=== PATIENT | male | born 1975 | race Caucasian/White ===

== ENCOUNTER 2022-04-05 09:52 | Outpatient (RCR) | payer OTHER, SELFPAY ==
--- NOTE | 2022-04-06 08:52 | PC.NURSE ---
I called Brett this morning to let him know that his insurance is inactive. 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 He stated he thought his insurance was reinstated however he stated he went to [facility] pick[facility] his sons medication and was told it would be $700.00. He plans on working on this issue today. He does not want to come to [facility] at this time as he does not want to pay out of pocket. I gave Brett information about [facility] Financial Assistance Program which could help him access [facility] insurance if needed. Brett is interested in this and Gilma emailed him the information. Brett stated he will call us when he has insurance as he is still interested in coming to the program. I asked him if he was safe or having any suicidal ideation. He denied SI and stated he was safe. Stated he needed to work on the insurance issue and thanked me for my help. He also stated he may needed to go back to work earlier d/t financial issues d/t being out of work. I also emailed Brett and let him know that I was emailing him a copy of his safety plan if needed which includes the crisis number.
== END 2022-04-05 23:59 | disposition home or self-care (01) ==
LOC: HO.PHPA 09:52
PROVIDERS: Visit Provider Psychiatry & Neurology Psychiatry
DX: F31.81 Bipolar II disorder (principal)

== ENCOUNTER 2022-04-22 13:28 | Outpatient (REF) | payer OTHER, SELFPAY ==
[2022-04-22 14:24] LABS: Alanine Aminotransferase 11 U/L (0-40); Albumin Level 4.7 g/dL (3.5-5.0); Alkaline Phosphatase 104 U/L (39-117); Anion Gap 10 (12-20); Aspartate Amino Transferase 21 U/L (5-37); Bilirubin Total 0.5 mg/dL (0.0-1.0); Blood Urea Nitrogen 19 mg/dL (9-16); Carbon Dioxide 32 mmol/L (22-29); Chloride 102 mmol/L (96-108); Estimated Glomerular Filt Rate > 60; Glucose Random 128 mg/dL (60-115); Potassium 4.3 mmol/L (3.3-5.1); Sodium 140 mmol/L (135-145); Total Protein 7.5 g/dL (6.5-8.0)
[2022-04-22 14:56] LABS: Free T4 (Free Thyroxine) 0.77 ng/dL (0.71-1.85); Thyroid Stimulating Hormone 0.53 uIU/mL (0.32-4.0)
== END 2022-04-22 13:29 | disposition home or self-care (01) ==
LOC: HO.LAB 13:28
PROVIDERS: Visit Provider Nurse Practitioner Psychiatric/Mental Health
DX: F31.81 Bipolar II disorder (principal)
CPT/HCPCS: 36415; 80053; 84439; 84443

== ENCOUNTER 2022-05-13 09:30 | Outpatient (RCR) | payer OTHER, SELFPAY ==
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
[2022-04-22 12:28] VITALS: BP 124/68; PULSE 80; RESP 14; TEMP 36.9
[2022-04-22 14:08] LABS: Amphetamine Screen Urine Not Detected (Not Detect); Barbiturates, Urine Not Detected (Not Detect); Benzodiazepines Screen Urine Not Detected (Not Detect); Cannabinoid Screen Urine Not Detected (Not Detect); Cocaine Screen Urine Not Detected (Not Detect); Fentanyl, urine Not Detected (Not Detect); Opiate Screen Urine Not Detected (Not Detect); Phencyclidine Screen Urine Not Detected (Not Detect)
[2022-04-22 15:31] VITALS: BMI 24.4
--- NOTE | 2022-04-22 15:57 | PC.ADMIT ---
Patient admitted to [facility] 04/22/2022 with following diagnosis: Bipolar II disorder chronic, major depressive, PTSD, ADHD, Alcohol use disorder. Patient was referred by [facility]. Patient admitted to [facility] on 08/02/2021 after failed suicide attempt by taking 20 Seroquel tablets followed my a glass of wine. Patient was initially admitted to [facility] medical floor with transfer to [facility] when medically stable. Patient reports anxiety, depression. low self esteem with Passive SI no plan or intent. Patient reports financial concerns and relational issues resulting in feelings of hopelessness and helplessness. 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 Patient has a long history of inpatient admissions related to SI, anxiety and depression. Patient met with [facility] who started patients back on his medication regimen. Will consider other med options after she gets lab results. Patient has a history of alcohol abuse. Patient was in recovery for 10 years until 11/2021. Patient has not had a drink since 02/25/2022. Patient attends AA meetings. Safety Plan given to patient. Medication reconciliation done with pharmacy and patient. Reviewed medication use, route, use, frequency and side effects. Patient states good understanding of medications. Full nursing assessment completed and charted.
--- NOTE | 2022-04-26 10:07 | PC.ADMIT ---
Patient admit to [facility] on 04/22/2022 with following diagnosis: Bipolar II disorder, chronic, major depressive, PTSD, ADHD, Alcohol use disorder. Patient is 46 years old, referred to [facility] by [facility] secondary to suicide attemp. Patient presented in [facility] ER on 02/25/22 after taking 22 Seroquel pills with a glass of wine. Patient was initially admitted to a medical floor and on 02/28/22 after medically cleared he was transferred to [facility]. Patient presents today during nursing assessment with severe anxiety and reports feelings of helplessness and hopelessness, poor sleep, low energy, low self esteem. Patient denies SI today, with no plan or intent. Copy of Safety tool given to patient who states he would reach out to crisis if feeling suicidal. Patient has a long history IPLOC with previous suicide attempts. Patient has a history of alcohol abuse, has been in recovery for 10 years until November 2021. He reports last time he drank was 02/25/2022. Patient reports he is attending AA meetings. Patient was seen by [facility] today for medication management. All medications reconciled with patient and pharmacy. Patient reported he was out of some medications. All scripts needed were provided to patient by [facility]. Medication teaching done including use, frequency, dose, side effects. Patient states good understanding. Patient has labs ordered, he will get labs drawn today. Nursing admission completed and charted.
--- NOTE | 2022-04-26 16:48 | P.PNPSP_ITS ---
Subjective Subjective Date of Service: 04/26/22 Reason For Visit: bipolar II,PTSD,ADHD,depression Medical Problems Affecting Mental Status: No Interim History: Reports feeling slightly better, although still anxious, with mood lability. Tearful at times during encounter. Relapsed with alcohol over the weekend. Continues with passive SI, no intent or plan. Poor sleep. Medication Compliance: Yes Side effects from medications: No Attending Groups: Yes Review of Systems Acute medical concerns: No Medical Review of Systems: unchanged Review of Systems Review of Systems Yes all other systems are reviewed and are negative Constitutional: Reports no additional constitutional complaints Mental Status Exam Mental Status Exam Narrative: NAD. Tearful, some mood lability Patient Appearance: Appropriate Patient Orientation: Person, Place, Time and Situation Level of Consciousness: Awake, Appropriate and Alert Patient Behavior: Appropriate, Cooperative and Anxious Mood Description: Depressed and Anxious Affect Description: Depressed, Anxious and Labile Patient Cognition Impaired: No Ability to Follow Directions: Good Speech Pattern: Clear, Spontaneous Speech and Excessive Memory Description: Intact Hallucinations: None Delusions: Not Present Perceptual Disturbances: Depersonalization Thought Content: positive for Suicidal Ideation (passive) Depressive Symptoms: Increased Anxiety, Diff. Making Decisions, Difficulty Sleeping, Loss of Int. in Activity, Hopelessness, Feelings of Guilt, Thoughts of /Suicide and Difficulty Concentrating Judgement: Fair Diagnostics Vital Signs (24Hr): BMI result Body Mass Index 24.4 Assessment & Plan Assessment & Plan (1) Bipolar 2 disorder: Status: Acute Code(s): F31.81 - Bipolar II disorder Assessment and Plan: Reports feeling slightly better, although still anxious, with mood lability. We discussed medications at length. For some time he was taking quetiapine 200 mg at bedtime. He had dropped down to 100 mg, and now currently has only been taking 25 mg b.i.d. p.r.n.. Education was provided regarding mood stabilization properties, as well as effectiveness with anxiety and sleep. He was agreeable to start taking 50 mg scheduled at bedtime in addition to the 25 mg b.i.d.. Reviewed current lab work. Discussed increasing oxcarbazepine in order to help further with mood st abilization. He was agreeable. Tearful at times during encounter. Feels overwhelmed. Has financial concerns, marital problems at home. Relapsed with alcohol over the weekend. Experiencing guilt regarding this. Encouraged to reach out to support network. We discussed naltrexone. He has taken this in the past, with some positive effect. He is willing to restart. Continues with passive SI, no intent or plan. Feels safe. Poor sleep. (2) Alcohol dependence, uncomplicated: Status: Acute Code(s): F10.20 - Alcohol dependence, uncomplicated (3) Chronic post-traumatic stress disorder (PTSD): Status: Acute Code(s): F43.12 - Post-traumatic stress disorder, chronic (4) ADHD: Status: Acute Code(s): F90.9 - Attention-deficit hyperactivity disorder, unspecified type Assessment and Plan: Attention and concentration somewhat improved now that he has resumed dextroamphetamine-amphetamine. Asking for higher dose. Discussed waiting at this time, as there are several other medication changes. Was agreeable to this. Plan 1. Continue with current [facility] plan of care. 2. Start quetiapine 50 mg scheduled at bedtime. 3. Increase oxcarbazepine to 600 mg b.i.d.. 4. Start naltrexone 50 mg daily. 5. Harm reduction discussion. 6. Follow-up as per protocol. Patient educated on: diagnosis, medication risk/benefits, substance abuse and therapeutic strategies Informed Consent: understands Reason for contiued partial hosp. stay Substantial Risk for: harm to self, inability to function and rapid decompensation Certification I certify that partial hospital treatment is medically necessary due to the symptoms and problems resulting from the patient's mental illness and the failure to treat the patient at the partial hospital level of care would likely result in the patient requiring inpatient psychiatric care which could not be prevented at a less intensive level of care. Total time managing care of this patient today __30__ minutes. Discharge Plan Discharge Attending provider: Braden Rudd Medications: New dextroamphetamine-amphetamine 20 mg capsule,extended release 24hr 20 mg PO DAILY Qty: 30 0RF Rx Instructions: Partial Fill upon patient request. trazodone 50 mg tablet 50 mg PO BEDTIME PRN (Reason: sleep) Qty: 30 0RF oxcarbazepine 600 mg tablet 600 mg PO BID Qty: 60 0RF quetiapine 50 mg tablet 50 mg PO BEDTIME Qty: 14 0RF naltrexone 50 mg tablet 50 mg PO DAILY Qty: 30 0RF Discontinued dextroamphetamine-amphetamine 20 mg tablet 1 tab PO BID oxcarbazepine 300 mg tablet 300 mg PO 1XD Rx Instructions: Half of 600 mg tab oxcarbazepine 600 mg tablet 600 mg PO BEDTIME No Action fluoxetine 20 mg capsule 20 mg PO DAILY albuterol sulfate 90 mcg/actuation HFA aerosol inhaler 2 puff INHALATION Q4H PRN (Reason: Shortness Of Breath) quetiapine [Seroquel] 25 mg Tablet 25 mg PO 2XD PRN (Reason: Anxiety)
--- NOTE | 2022-04-28 15:40 | HO.PHPIOP ---
Case opened in treatment team
--- NOTE | 2022-05-05 10:25 | HO.PHPPROGNO ---
Subjective Subjective Date of Service: 05/05/22 Reason For Visit: bipolar II,PTSD,ADHD,depression Medical Problems Affecting Mental Status: No Interim History: Describes mood as depressed, anxious. Has been taking increased oxcarbazapine, Seroquel, added naltrexone, with no complaints. Some mild GI upset at 1st with naltrexone, resolving. A drink over past week 3 times, states with less amounts. No SI, no safety concerns. Remembers why he stopped taking Depakote in the past, reports that made him feel sluggish and absent minded. Not currently prescribed this Medication Compliance: Yes Side effects from medications: Yes (mild) Attending Groups: Yes Review of Systems Acute medical concerns: No Medical Review of Systems: unchanged Review of Systems Review of Systems Yes all other systems are reviewed and are negative Constitutional: Reports no additional constitutional complaints Mental Status Exam Mental Status Exam Narrative: NAD. Patient Appearance: Appropriate Patient Orientation: Person, Place, Time and Situation Level of Consciousness: Awake, Appropriate and Alert Patient Behavior: Appropriate and Cooperative Mood Description: Depressed and Anxious Affect Description: Depressed and Anxious Patient Cognition Impaired: No Ability to Follow Directions: Good Speech Pattern: Clear and Spontaneous Speech Memory Description: Intact Hallucinations: None Delusions: Not Present Thought Process: Intact Thought Content: positive for Intact and positive for Perseveration Depressive Symptoms: Increased Anxiety, Diff. Making Decisions, Difficulty Sleeping and Feelings of Guilt Judgement: Fair Diagnostics Vital Signs (24Hr): BMI result Body Mass Index 24.4 Assessment & Plan Assessment & Plan (1) Bipolar 2 disorder: Status: Acute Code(s): F31.81 - Bipolar II disorder Assessment and Plan: Continues with depressed, anxious mood an affect. Finding sleep is still difficult, slightly improved with Seroquel 50 at bedtime. Feels mood is slightly more stable. No SI, no safety concerns. Reports he is still dealing with multiple stressors, including financial hardship, marital conflict, wanting to leave his job to do something oz. Reviewed his medications, no changes at this time. (2) Alcohol dependence, uncomplicated: Status: Acute Code(s): F10.20 - Alcohol dependence, uncomplicated Assessment and Plan: As been drinking, 3 times within past week. States that he is using less amounts at a time. Has been tolerating naltrexone well. Working with his AA sponsor. (3) Chronic post-traumatic stress disorder (PTSD): Status: Acute Code(s): F43.12 - Post-traumatic stress disorder, chronic (4) ADHD: Status: Acute Code(s): F90.9 - Attention-deficit hyperactivity disorder, unspecified type Plan 1. Continue with current [facility] plan of care. 2. Refill quetiapine 50 mg at bedtime sent to pharmacy. 3. Follow-up as per protocol. Patient educated on: diagnosis, medication risk/benefits, substance abuse and therapeutic strategies Informed Consent: understands Reason for contiued partial hosp. stay Substantial Risk for: inability to function, rapid decompensation and med/psych decompensation Certification I certify that partial hospital treatment is medically necessary due to the symptoms and problems resulting from the patient's mental illness and the failure to treat the patient at the partial hospital level of care would likely result in the patient requiring inpatient psychiatric care which could not be prevented at a less intensive level of care. Total time managing care of this patient today _20___ minutes. Discharge Plan Discharge Attending provider: Braden Rudd Medications: New dextroamphetamine-amphetamine 20 mg capsule,extended release 24hr 20 mg PO DAILY Qty: 30 0RF Rx Instructions: Partial Fill upon patient request. trazodone 50 mg tablet 50 mg PO BEDTIME PRN (Reason: sleep) Qty: 30 0RF oxcarbazepine 600 mg tablet 600 mg PO BID Qty: 60 0RF naltrexone 50 mg tablet 50 mg PO DAILY Qty: 30 0RF quetiapine 50 mg tablet 50 mg PO BEDTIME Qty: 30 0RF Discontinued dextroamphetamine-amphetamine 20 mg tablet 1 tab PO BID oxcarbazepine 300 mg tablet 300 mg PO 1XD Rx Instructions: Half of 600 mg tab oxcarbazepine 600 mg tablet 600 mg PO BEDTIME No Action fluoxetine 20 mg capsule 20 mg PO DAILY albuterol sulfate 90 mcg/actuation HFA aerosol inhaler 2 puff INHALATION Q4H PRN (Reason: Shortness Of Breath) quetiapine [Seroquel] 25 mg Tablet 25 mg PO 2XD PRN (Reason: Anxiety)
--- NOTE | 2022-05-13 13:50 | HO.PHPIOP ---
A referral was made for providers at [facility]
--- NOTE | 2022-05-13 16:47 | HO.PHPPROGNO ---
Subjective Subjective Date of Service: 05/13/22 Reason For Visit: bipolar II,PTSD,ADHD, AUD Medical Problems Affecting Mental Status: No Interim History: Describes mood as ?okay ?. Affect anxious. Has found program to be somewhat helpful. States that this is his 6th IOP. Overall, feels program has helped him to realize he is not defined by his mental illness or addiction. No SI, no safety concerns at this time. Has struggled to maintain abstinence from alcohol while in program. Requesting letter for [facility] [employer] [facility] stating that he as a chronic mental health condition. Also requesting refills of all of his medications. Medication Compliance: Yes Side effects from medications: No Attending Groups: Yes Review of Systems Acute medical concerns: No Medical Review of Systems: unchanged Review of Systems Review of Systems Yes all other systems are reviewed and are negative Constitutional: Reports no additional constitutional complaints Mental Status Exam Mental Status Exam Narrative: NAD. Patient Appearance: Appropriate Patient Orientation: Person, Place, Time and Situation Level of Consciousness: Awake, Appropriate and Alert Patient Behavior: Appropriate and Cooperative Mood Description: Appropriate Affect Description: Depressed (some improvment) and Anxious (some improvement) Patient Cognition Impaired: No Ability to Follow Directions: Good Speech Pattern: Clear and Spontaneous Speech Memory Description: Intact Hallucinations: None Delusions: Not Present Thought Process: Intact Thought Content: positive for Intact Depressive Symptoms: Increased Anxiety Judgement: Good Diagnostics Vital Signs (24Hr): BMI result Body Mass Index 24.4 Assessment & Plan Assessment & Plan (1) Bipolar 2 disorder: Status: Acute Code(s): F31.81 - Bipolar II disorder Assessment and Plan: Describes mood as ?okay ?. Continues with some anxiety, overall mood more stable. Has found program to be somewhat helpful. States that this is his 6th IOP. States that he knows what to do, and being in the program just reminds him when he already knows. Overall, feels program has helped him to realize he is not defined by his mental illness or addiction. No SI, no safety concerns at this time. Has struggled to maintain abstinence from alcohol while in program. Continues to display little insight into his alcohol use and its role in life stressors. Takes naltrexone as prescribed, also attends 12 step meetings. Requesting letter for [facility] [employer] [facility] stating that he as a chronic mental health condition. Also requesting refills of all of his medications. Awaiting information regarding who his new outpatient provider will be, and date for intake. (2) Alcohol dependence, uncomplicated: Status: Acute Code(s): F10.20 - Alcohol dependence, uncomplicated (3) Chronic post-traumatic stress disorder (PTSD): Status: Acute Code(s): F43.12 - Post-traumatic stress disorder, chronic (4) ADHD: Status: Acute Code(s): F90.9 - Attention-deficit hyperactivity disorder, unspecified type Plan 1. Patient appears stable for discharge from [facility] at this time. 2. Refills of medications, 30 day supply, sent to pharmacy. 3. Letter confirming attendance at [facility], along with notation stating mental health condition supply to patient. 4. Patient to follow-up with outpatient providers going forward. Patient educated on: diagnosis, medication risk/benefits, substance abuse and therapeutic strategies Informed Consent: understands Reason for contiued partial hosp. stay Substantial Risk for: stable for discharge Certification I certify that partial hospital treatment is medically necessary due to the symptoms and problems resulting from the patient's mental illness and the failure to treat the patient at the partial hospital level of care would likely result in the patient requiring inpatient psychiatric care which could not be prevented at a less intensive level of care. Total time managing care of this patient today _20___ minutes. Discharge Plan Discharge Attending provider: Braden Rudd [facility] directly with an appointment for the therapist. AA Medications: New dextroamphetamine-amphetamine 20 mg capsule,extended release 24hr 20 mg PO DAILY Qty: 30 0RF Rx Instructions: Partial Fill upon patient request. trazodone 50 mg tablet 50 mg PO BEDTIME PRN (Reason: sleep) Qty: 30 0RF oxcarbazepine 600 mg tablet 600 mg PO BID Qty: 60 0RF naltrexone 50 mg tablet 50 mg PO DAILY Qty: 30 0RF quetiapine 50 mg tablet 50 mg PO BEDTIME Qty: 30 0RF zolpidem 10 mg tablet 10 mg PO BEDTIME PRN (Reason: sleep) Qty: 30 0RF dextroamphetamine-amphetamine 20 mg capsule,extended release 24hr 20 mg PO DAILY Qty: 30 0RF Rx Instructions: Partial Fill upon patient request. naltrexone 50 mg tablet 50 mg PO DAILY Qty: 30 0RF oxcarbazepine 600 mg tablet 600 mg PO BID Qty: 60 0RF quetiapine 50 mg tablet 50 mg PO BEDTIME Qty: 30 0RF trazodone 50 mg tablet 50 mg PO BEDTIME PRN (Reason: sleep) Qty: 30 0RF fluoxetine 20 mg capsule 20 mg PO DAILY Qty: 30 0RF Discontinued dextroamphetamine-amphetamine 20 mg tablet 1 tab PO BID oxcarbazepine 300 mg tablet 300 mg PO 1XD Rx Instructions: Half of 600 mg tab oxcarbazepine 600 mg tablet 600 mg PO BEDTIME No Action fluoxetine 20 mg capsule 20 mg PO DAILY albuterol sulfate 90 mcg/actuation HFA aerosol inhaler 2 puff INHALATION Q4H PRN (Reason: Shortness Of Breath) quetiapine [Seroquel] 25 mg Tablet 25 mg PO 2XD PRN (Reason: Anxiety) Stand Alone Forms: Patient Portal Discharge page Patient Education: Bipolar Disorder (DC), Alcohol Use Disorder (DC)
== END 2022-05-13 23:59 | disposition home or self-care (01) ==
LOC: HO.PHPA 09:30
PROVIDERS: Nurse Practitioner Psychiatric/Mental Health; Visit Provider Psychiatry & Neurology Psychiatry
DX: F31.81 Bipolar II disorder (principal); F43.12 Post-traumatic stress disorder, chronic; F90.9 Attention-deficit hyperactivity disorder, unspecified type; F10.20 Alcohol dependence, uncomplicated; Z79.899 Other long term (current) drug therapy; Z91.51 Personal history of suicidal behavior
CPT/HCPCS: 80307; 90791; 90853